=== PATIENT | female | born 1980 | race Caucasian/White ===

== ENCOUNTER 2025-07-02 13:40 | Outpatient (REF) | payer OTHER, SELFPAY ==
[2025-07-02 18:00] LABS: MANUAL DIFF FLAG NO
[2025-07-02 18:14] LABS: Hematocrit 40.9 % (37.0-47.0); Hemoglobin 13.5 g/dl (12.0-16.0); Imm Gran Abs Auto 0.01 X10*3/uL (0.00-0.03); Imm Gran Pct Auto 0.1 % (0.0-0.4); Lymphocytes Absolute Auto 2.1 X10*3/uL (1.2-4.9); Mean Corpuscular HGB Conc 33.0 g/dl (31.0-35.0); Mean Corpuscular Hemoglobin 29.2 pg (27.0-33.0); Mean Corpuscular Volume 88.3 fL (80.0-98.0); NRBC Abs Auto 0.000 X10*3/uL (0.0-0.012); NRBC Pct Auto 0.0 /100WBC (0.0-0.2); Platelet Count 314 X10*3/uL (160-400); Red Blood Count 4.63 X10*6/uL (4.20-5.50); White Blood Count 7.0 X10*3/uL (4.8-10.8)
[2025-07-02 18:34] LABS: Alanine Aminotransferase 18 U/L (0-31); Albumin Level 4.9 g/dL (3.5-5.0); Alkaline Phosphatase 70 U/L (39-117); Anion Gap 12 (12-20); Aspartate Amino Transferase 16 U/L (5-31); Blood Urea Nitrogen 11 mg/dL (9-16); Calcium 8.9 mg/dL (8.4-10.2); Carbon Dioxide 28 mmol/L (22-29); Chloride 100 mmol/L (96-108); Cholesterol 195 mg/dL (<200); Estimated Glomerular Filt Rate > 60; HDL Cholesterol 60 mg/dL (>40); Magnesium 2.2 mg/dL (1.6-2.6); Potassium 3.4 mmol/L (3.3-5.1); Sodium 137 mmol/L (135-145); Total Protein 8.0 g/dL (6.5-8.0); Triglycerides 77 mg/dL (<150)
[2025-07-02 18:58] LABS: Folate 13.6 ng/mL (> or = 4.0); Vitamin B12 986 pg/mL (200-900)
[2025-07-03 07:36] LABS: HBS Num1 89.59 mIU/mL (0-7.99); HBsAGNum1 0.35 S/CO (0.00-0.99); HIV Num 1 0.07 S/CO (0.00-0.99); Hepatitis B Surface Antigen Negative (Negative); ~HepC Num1 0.10 S/CO (0.00-0.79); ~Hepatitis B Surface Antibody REACTIVE (Nonreactive); ~Hepatitis C Antibody Nonreactive (Nonreactive)
[2025-07-03 08:13] LABS: Rubeola IgG (Measles) 35.00 AU/mL
[2025-07-06 12:18] LABS: VITAMIN D (1,25 OH) D3 82 pg/mL; Vit D (1,25-Dihydroxy) Total 82 pg/mL (18-72); Vitamin D (1,25 OH) D2 <8 pg/mL
== END 2025-07-02 13:41 | disposition home or self-care (01) ==
LOC: HO.HKASLDS 13:40
PROVIDERS: PCP Student in an Organized Health Care Education/Training Program; Visit Provider Student in an Organized Health Care Education/Training Program
DX: Z13.9 Encounter for screening, unspecified (principal); E89.40 Asymptomatic postprocedural ovarian failure; F41.9 Anxiety disorder, unspecified; F32.A Depression, unspecified; N60.02 Solitary cyst of left breast; Z86.03 Personal history of neoplasm of uncertain behavior; Z79.890 Hormone replacement therapy; Z79.899 Other long term (current) drug therapy
CPT/HCPCS: 36415; 80053; 80061; 82607; 82652; 82746; 83036; 83735; 84443; 85025; 86706; 86735; 86762; 86765; 86787; 86803; 87340; 87389

== ENCOUNTER 2025-07-02 13:40 | Outpatient (AMB) | payer OTHER, SELFPAY ==
--- NOTE | 2025-07-02 13:38 | A.OFFPC_ITS ---
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 Anxiety and Depression: The patient reports a history of depression and anxiety, which began after her surgery at age 31. These conditions are managed with fluoxetine (Prozac), which was previously prescribed by an online nurse practitioner. She is currently ru nning low on her medication, which prompted the visit. 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 She has been on hormone replacement therapy since the surgery, currently taking estradiol via 0.1 mg and 0.05 mg patches applied twice weekly, as well as progesterone. Associated symptoms include insomnia with interrupted sleep which started after the surgery. Migraine Headache: The patient reports a recurrence of migraine headaches, which she previously experienced in her 20s. She describes them as unilateral, without aura, and triggered by stress. She has tried sumatriptan, rizatriptan, and Ubrelvy for abortive therapy, noting that Ubrelvy works within two hours. In the past, she used propranolol 10 mg twice daily for prophylaxis. She was referred to a headache center previously but did not attend the appointment as her symptoms had resolved at that time. History of Breast Cyst: The patient has a history of a left breast cyst, for which a biopsy was performed at age 38. A titanium chip was placed, and the biopsy results indicated the lesion was benign. Due to having highly dense breasts, her previous MICA PATCHER recommended screening with ultrasounds instead of mammograms. She acknowledges that she is overdue for her screening ultrasound. Surgical History: - Bilateral oophorectomy at age 31 for a borderline ovarian tumor. - Omentectomy at age 31. - Left breast cyst biopsy at age 38 with placement of a titanium chip. Medications: - Fluoxetine (Prozac) for depression and anxiety. - Estradiol 0.1 mg and 0.05 mg patch twi ce weekly for hormone replacement therapy. - Progesterone for hormone replacement t herapy. - Ubrelvy as needed for migraine headach es. 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 - Housing: She recently moved from [facility]. - Family status: She has daughters. - Substance Use: Denies smoking or alcoh ol use. Family History: - No family history was discussed. Diagnostic Results: - Labs: Last blood work was performed ; no results were reviewed. - Diagnostics: Biopsy of a left breast c yst at age 38 was reported as benign. Past Medical History - ovarian tumor at age 31, status post b ilateral oophorectomy and omentectomy. - Surgical menopause since age 31. - Depression and anxiety, onset post-carrol hector. - Insomnia. - Migraine headaches. - History of benign left breast cyst, st atus post biopsy at age 38. - History of highly dense breasts. Health Maintenance - Order comprehensive baseline laborator y studies, including a complete blood count, comprehensive metabolic panel, thyroid studies, calcium, magnesium, vitamin B12, folate, vitamin D, hemoglobin A1c, lipid panel, and HIV screening. - Order Hepatitis B and MMR titers for e mployment requirements. - Order a bilateral breast ultrasound fo r breast cancer screening. - Request medical records from previous providers. - Plan for follow-up in two weeks to rev iew lab results. [facility] Medical History (Updated 07/02/25 @ 14:13 by Preston Dee MD) Cyst of left breast History of neoplasm of uncertain behavior of ovary Surgical menopause Anxiety and depression Family History (Updated 07/02/25 @ 13:49 by Dank Anderson MA) Mother High blood pressure Angina of effort Parkinson disease Diabetes Asthma Hypothyroidism Father No problems noted. Social History Housing: Apartment Patient Tobacco Use Status: Never used Tobacco service: No Current occupational status: employed Cognitive needs: No Hearing needs: No Vision needs: Yes (rx glasses) Review of Systems Narrative Review of Systems - Constitutional: Denies pain. - Psychiatric: Reports history of depression and anxiety. - Neurological: Reports recurrent, unilateral migraine headaches without aura. - Sleep: Reports interrupted sleep since undergoing surgical menopause. - Endocrine: Denies issues with blood pressure or blood sugar. - Gastrointestinal: Reports no issues with bowel movements and denies constipation. 10-point ROS reviewed and negative except as noted in HPI Physical exam (Primary Care) Vital Signs: Last Vital Signs Temp 97.7 F 07/02/25 13:45 Pulse 77 07/02/25 13:45 Resp 16 07/02/25 13:45 BP 107/66 07/02/25 13:45 Pulse Ox 97 07/02/25 13:45 Oxygen Delivery Method Room Air 07/02/25 13:45 BMI result Body Mass Index 23.9 Tobacco/Smoking Status: Tobacco use Status Tobacco use date assessed 07/02/25 07/02/25 13:44 Patient Tobacco Use Status Never used Tobacco 07/02/25 13:44 Narrative Physical Exam General: Well-appearing, in no acute distress. Vital signs: Within normal limits. HEENT: Normocephalic, atraumatic. PERRLA, EOMI. Conjunctiva clear, sclera anicteric. Oropharynx clear, mucous membranes moist. TMs intact bilaterally. Neck: Supple, no lymphadenopathy, no thyromegaly, no JVD or carotid bruits. Cardiovascular: RRR, normal S1/S2, no murmurs, rubs, or gallops. Peripheral pulses 2+ and symmetric. No edema. Respiratory: Lungs clear to auscultation bilaterally, no wheezes, rales, or rhonchi. Normal effort. Abdomen: Soft, non-tender, non-distended. Normoactive bowel sounds. No hepatosplenomegaly, no masses. MSK: Full range of motion, no joint swelling or deformity. Normal gait. Skin: Warm, dry, intact. No rashes, lesions, or pallor. Neuro: Alert and oriented x3. Cranial nerves II-XII intact. Strength 5/5 throughout. Sensation intact. Reflexes 2+ symmetric. Normal coordination and gait. Psych: Appropriate mood and affect. Normal judgment and insight. Patient reports depression and anxiety, managed with fluoxetine. Reports insomnia post-surgery. Coding Level of Care Code New Pt Level 4 (20108) Diagnoses History of neoplasm of uncertain behavior of ovary Z86.03 Surgical menopause E89.40 Anxiety and depression F41.9; F32.A Cyst of left breast N60.02 Assessment & Plan Assessment & Plan (1) History of neoplasm of uncertain behavior of ovary: Code(s): Z86.03 - Personal history of neoplasm of uncertain behavior Category: Medical (2) Surgical menopause: Code(s): E89.40 - Asymptomatic postprocedural ovarian failure Category: Medical (3) Anxiety and depression: Code(s): F41.9 - Anxiety disorder, unspecified; F32.A - Depression, unspecified Category: Medical (4) Cyst of left breast: Code(s): N60.02 - Solitary cyst of left breast Category: Medical Plan Consent The patient provided verbal consent for the proposed plan of care, which inc ludes medication refills, referrals to specialists, comprehensive laboratory testing, and diagnostic imaging. The rationale for obtaining baseline labs as a new patient was explained and the patient agreed. Patient was informed and verbally consented to the use of an ambient scribe for clinic note documentation during this visit. Plan 1. Anxiety And Depression - Refill fluoxetine (Prozac). - Place referral to Behavioral Health for ongoing management. 2. Surgical Menopause - Refill estradiol 0.1 mg and 0.05 mg patches and progesterone. - Place referral to FILTER TIP CATCHER for continued specialty care. 3. Migraine Headache - Prescribe propranolol 10 mg twice daily for migraine prophylaxis, as this was effective for the patient in the past. Discussion Notes I have reviewed the patient's request for medication refills and the need to establish care. I explained that as a new patient without any prior records, it is important to obtain comprehensive baseline laboratory studies to get an overall picture of her health, to which she agreed. I will provide refills for her current medications, including fluoxetine, estradiol, and progesterone. I will also prescribe propranolol for her recurrent migraine headaches, which she has used successfully in the past. I am placing referrals to behavioral health for management of her depression and anxiety and to an FILTER TIP CATCHER for ongoing management of her hormone replacement therapy. We discussed her overdue breast cancer screening, and I will order a bilateral breast ultrasound, which is appropriate given her dense breast tissue and her previous MICA PATCHER's recommendation. I have instructed the patient to have her labs drawn today as she is fasting and to follow up in two weeks to review the results. Finally, I advised her to sign a release form at the front office director to facilitate the request for her medical records from her previous providers. Patient Instructions - Your prescriptions for fluoxetine (Prozac), estradiol, progesterone, and propranolol will be sent to your pharmacy. - Please go to our clinic's lab to have your blood drawn today, as you are already fasting. - Our office will refer you to a behavioral health specialist and an FILTER TIP CATCHER. - If you do not hear from the specialists' offices within two weeks, please give them a call. - We have ordered a breast ultrasound for you. Please proceed with scheduling this imaging test. - Please sign a release form with the front office director so we can get your medical records from your previous doctors. - Please schedule a follow-up appointment in two weeks to go over your lab results. Medical Decision Making The patient is a 44-year-old female presenting to [facility] care after a recent relocation. Her primary needs are continuity of care for her chronic conditions and establishing a baseline health status, as no prior medical records are available. The patient's history of depression, anxiety, and surgical menopause requires ongoing medication management. Refills for fluoxetine and hormone replacement therapy (estradiol, progesterone) are clinically indicated to prevent symptom relapse. Given the specialized nature of these conditions, referrals to Behavioral Health and FILTER TIP CATCHER are appropriate for long-term, expert management. The patient's report of recurrent migraine headaches warrants prophylactic treatment. Her previous positive response to propranolol supports re-initiating this therapy at a standard low dose for prophylaxis. As this is an initial encounter without historical data, a comprehensive laboratory workup is prudent to establish baseline organ function, screen for metabolic abnormalities, and check relevant vitamin levels and titers. Ordering Hepatitis B and MMR titers will also satisfy her pre-employment health screening requirements. Given her history of a benign breast cyst, dense breast tissue, and her former MICA PATCHER's advice, a screening bilateral breast ultrasound is the most appropriate imaging modality, superseding a routine mammogram at this time. A follow-up in two weeks will allow for review of all diagnostic results and adjustment of the care plan. Total time spent caring for the patient today was 30 minutes. This includes time spent before the visit reviewing the chart, time spent documenting, and time spent reviewing laboratory results, diagnostic imaging, medications, performing a medically necessary evaluation, counseling on diagnoses, care coordination, ordering appropriate tests, ordering appropriate medications, review of tests performed by other providers, reporting test results with the patient. Orders: Orders Comprehensive Met. Panel Today Z13.9 - Encounter for screening, unspecified Hemoglobin A1c Today Z13.9 - Encounter for screening, unspecified HIV Ab/Ag Today Z13.9 - Encounter for screening, unspecified Lipid Panel Today Z13.9 - Encounter for screening, unspecified Magnesium Today Z13.9 - Encounter for screening, unspecified TSH reflex Free T4 Today Z13.9 - Encounter for screening, unspecified UA CC w/rflx Micro + Cult Today Z13.9 - Encounter for screening, unspecified Vitamin D 1,25 dihydroxy Today Z13.9 - Encounter for screening, unspecified Varicella IgG Antibody Today Z13.9 - Encounter for screening, unspecified US breast LT complete Today N60.02 - Solitary cyst of left breast US breast RT complete Today N60.02 - Solitary cyst of left breast Complete Blood Count Auto Diff Today Z13.9 - Encounter for screening, unspecified Hepatitis B Surface Antibody Today Z13.9 - Encounter for screening, unspecified Hepatitis B Surface Antigen Today Z13.9 - Encounter for screening, unspecified Hepatitis C Antibody Today Z13.9 - Encounter for screening, unspecified Vitamin B12 and Folate Today Z13.9 - Encounter for screening, unspecified MMR IgG Measles Mumps Rubella Today Z13.9 - Encounter for screening, unspecified Referrals Behavioral Health Referral F32.A - Depression, unspecified, F41.9 - Anxiety disorder, unspecified FILTER TIP CATCHER Referral E89.40 - Asymptomatic postprocedural ovarian failure, Z86.03 - Personal history of neoplasm of uncertain behavior
[2025-07-02 13:45] VITALS: BP 107/66; PULSE 77; RESP 16; TEMP 36.5; O2SAT 97; BMI 23.9
--- OUTSIDE RECORDS SUMMARY | 2025-07-02 14:36 | XMS_ITS | Encounter Summary ---
Author Organization [facility] Address [address] [place] [address] Care Team Providers Care Circuits Engineer Name Role Phone Stevenson Nicole MD Primary Care Provider Unava ilnakia Pcp, No Primary Care Provider Jimbo Kasper MD Primary Care Provider [phone] Encounter Details Date Type Department Care Team (Late st Contact Info) Description 06/03/2018 Scanned Document [address] [place] [address] [phone] Provider, Generic Social History Tobacco Use Types Packs/Day Years Used Date Smoking Tobacco: Never Alcohol Use Standard Drinks/Week Comments No 0 (1 standard drink = 0.6 oz pur e alcohol) Comments Unknown Sex and Gender Information Value Date Recorded Sex Assigned at Not on file Legal Sex Female 9:26 AM EDT Gender Identity Not on file Sexual Orientation Not on file documented as of this encounter Plan of Treatment Upcoming Encounters Date Type Department Care Team (Late st Contact Info) Description 10/01/2025 11:00 AM EST Office Visit [address] [place] [phone] Jimbo Diehl MD [address] [place] [phone] documented as of this encounter Visit Diagnoses Not on filedocumented in this encounter Care Teams Circuits Engineer Relationship Specialty Start Date End Date Stevenson Nicole MD PCP - General Internal Medicine 11/14/17 04/30/21 Pcp, No PCP - General General Medicine 05/01/21 09/29/24 Jimbo Diehl MD [address] [address] PCP - General Family Medicine 09/30/24 documented as of this encounter
--- OUTSIDE RECORDS SUMMARY | 2025-07-02 14:36 | XMS_ITS | Encounter Summary ---
Author Organization [facility] Address [address] [place] [address] Care Team Providers Care Mechanical Intern Name Role Phone Stevenson Nicole MD Primary Care Provider Unava ilnakia Pcp, No Primary Care Provider Jimbo Kasper MD Primary Care Provider [phone] Encounter Details Date Type Department Care Team (Late st Contact Info) Description 06/03/2018 Scanned Document [address] [place] [address] [phone] Provider, Generic Social History Tobacco Use Types [...] Description 10/01/2025 11:00 AM EST Office Visit [address] [place] [phone] Jimbo Diehl MD [address] [place] [address] documented as of this encounter Visit Diagnoses Not on filedocumented in this encounter Care Teams Mechanical Intern Relationship Specialty Start Date End Date Stevenson Nicole MD PCP - General Internal Medicine 11/14/17 04/30/21 Pcp, No PCP - General General Medicine 05/01/21 09/29/24 Jimbo Diehl MD [address] [address] PCP - General Family Medicine 09/30/24 documented as of this encounter
--- OUTSIDE RECORDS SUMMARY | 2025-07-02 14:36 | XMS_ITS | Encounter Summary ---
Author Organization [facility] Address [address] [place] [address] Care Team Providers Care Retail Assistant Manager Name Role Phone Stevenson Nicole MD Primary Care Provider Unava ilable Pcp, No Primary Care Provider UnavailJimbo Burns MD Primary Care Provider [phone] Encounter Details Date Type Department Care Team (Late st Contact Info) Description 08/19/2018 Scanned Document [address] [place] [phone] Stevenson Nicole MD Social History Tobacco Use Types Packs/Day Years [...] Description 10/01/2025 11:00 AM EST Office Visit [address] [place] [phone] Jimbo Diehl MD [address] [place] [phone] documented as of this encounter Visit Diagnoses Not on filedocumented in this encounter Care Teams Retail Assistant Manager Relationship Specialty Start Date End Date Stevenson Nicole MD PCP - General Internal Medicine 11/14/17 04/30/21 Pcp, No PCP - General General Medicine 05/01/21 09/29/24 Jimbo Diehl MD [address] [address] PCP - General Family Medicine 09/30/24 documented as of this encounter
--- OUTSIDE RECORDS SUMMARY | 2025-07-02 14:36 | XMS_ITS | Encounter Summary ---
Author Organization [facility] Address [address] [place] [address] Care Team Providers Care Software Sales Manager Name Role Phone Stevenson Nicole MD Primary Care Provider Unava ilnakia Pcp, No Primary Care Provider Jimbo Kasper MD Primary Care Provider [phone] Encounter Details Date Type Department Care Team (Late st Contact Info) Description 05/20/2018 Scanned Document [address] [phone] Provider, Generic Social History Tobacco Use Types [...] Description 10/01/2025 11:00 AM EST Office Visit [address] [place] [phone] Jimbo Diehl MD [address] [place] [address] documented as of this encounter Visit Diagnoses Not on filedocumented in this encounter Care Teams Software Sales Manager Relationship Specialty Start Date End Date Stevenson Nicole MD PCP - General Internal Medicine 11/14/17 04/30/21 Pcp, No PCP - General General Medicine 05/01/21 09/29/24 Jimbo Diehl MD [address] [address] PCP - General Family Medicine 09/30/24 documented as of this encounter
--- OUTSIDE RECORDS SUMMARY | 2025-07-02 14:36 | XMS_ITS | Encounter Summary ---
Author Organization [facility] Address [address] [place] [address] Care Team Providers Care Goat Farmer Name Role Phone Stevenson Nicole MD Primary Care Provider Unava ilnakia Pcp, No Primary Care Provider Jimbo Kasper MD Primary Care Provider [phone] Encounter Details Date Type Department Care Team (Late st Contact Info) Description 07/15/2018 Scanned Document [address] [place] [address] [phone] Provider, Generic Social History Tobacco Use Types [...] Description 10/01/2025 11:00 AM EST Office Visit [address] [place] [phone] Jimbo Diehl MD [address] [place] [phone] documented as of this encounter Visit Diagnoses Not on filedocumented in this encounter Care Teams Goat Farmer Relationship Specialty Start Date End Date Stevenson Nicole MD PCP - General Internal Medicine 11/14/17 04/30/21 Pcp, No PCP - General General Medicine 05/01/21 09/29/24 Jimbo Diehl MD [address] [address] PCP - General Family Medicine 09/30/24 documented as of this encounter
--- OUTSIDE RECORDS SUMMARY | 2025-07-02 14:36 | XMS_ITS | Encounter Summary ---
Author Organization [facility] Address [address] [place] [address] Care Team Providers Care Stock Checkerer Name Role Phone Stevenson Nicole MD Primary Care Provider Unava ilnakia Pcp, No Primary Care Provider Jimbo Kasper MD Primary Care Provider [phone] Encounter Details Date Type Department Care Team (Late st Contact Info) Description 04/18/2018 Scanned Document [address] [phone] Provider, Generic Social History Tobacco [...] Description 10/01/2025 11:00 AM EST Office Visit [address] [place] [phone] Jimbo Diehl MD [address] [place] [address] documented as of this encounter Visit Diagnoses Not on filedocumented in this encounter Care Teams Stock Checkerer Relationship Specialty Start Date End Date Stevenson Nicole MD PCP - General Internal Medicine 11/14/17 04/30/21 Pcp, No PCP - General General Medicine 05/01/21 09/29/24 Jimbo Diehl MD [address] [address] PCP - General Family Medicine 09/30/24 documented as of this encounter
--- OUTSIDE RECORDS SUMMARY | 2025-07-02 14:36 | XMS_ITS | Encounter Summary ---
Author Organization [facility] Address [address] [place] [address] Care Team Providers Care Interpreter For The Deaf Name Role Phone Stevenson Nicole MD Primary Care Provider Unava ilnakia Pcp, No Primary Care Provider Jimbo Kasper MD Primary Care Provider [phone] Encounter Details Date Type Department Care Team (Late st Contact Info) Description 11/18/2017 Scanned Document [address] [facility] [address] [place] [phone] Provider, Generic Social History Tobacco Use Types Packs/Day Years Used Date Smoking Tobacco: Never Assessed Comments Unknown Sex and Gender Information Value Date Recorded Sex Assigned at Not on file Legal Sex Female 9:26 AM EDT Gender Identity Not on file Sexual Orientation Not on file documented as of this encounter Plan of Treatment Upcoming Encounters Date Type Department Care Team (Late st Contact Info) Description 10/01/2025 11:00 AM EST Office Visit [address] [place] [phone] Jimbo Diehl MD [address] [place] [phone] documented as of this encounter Visit Diagnoses Not on filedocumented in this encounter Care Teams Interpreter For The Deaf Relationship Specialty Start Date End Date Stevenson Nicole MD PCP - General Internal Medicine 11/14/17 04/30/21 Pcp, No PCP - General General Medicine 05/01/21 09/29/24 Jimbo Diehl MD [address] [facility] [address] [place] [address] PCP - General Family Medicine 09/30/24 documented as of this encounter
--- OUTSIDE RECORDS SUMMARY | 2025-07-02 14:36 | XMS_ITS | Encounter Summary ---
Author Organization Formerly [facility] Address [address] [place] [address] Care Team Providers Care Papeterie Table Assembler Name Role Phone Stevenson Nicole MD Primary Care Provider Unava ilnakia Pcp, No Primary Care Provider Jimbo Kasper MD Primary Care Provider [phone] Encounter Details Date Type Department Care Team (Late st Contact Info) Description 07/09/2019 Scanned Document [address] [facility] [address] [place] [phone] Provider, Generic Social History Tobacco Use Types Packs/Day Years Used Date Smoking Tobacco: Never Smokeless Tobacco: Never Alcohol Use Standard Drinks/Week Comments No 0 (1 standard drink = 0.6 oz pur e alcohol) Comments Yes Sex and Gender Information Value Date Recorded Sex Assigned at Not on file Legal Sex Female 9:26 AM EDT Gender Identity Not on file Sexual Orientation Not on file documented as of this encounter Plan of Treatment Upcoming Encounters Date Type Department Care Team (Late st Contact Info) Description 10/01/2025 11:00 AM EST Office Visit [address] [place] [phone] Jimbo Diehl MD [address] [place] [address] documented as of this encounter Visit Diagnoses Not on filedocumented in this encounter Care Teams Papeterie Table Assembler Relationship Specialty Start Date End Date Stevenson Nicole MD PCP - General Internal Medicine 11/14/17 04/30/21 Pcp, No PCP - General General Medicine 05/01/21 09/29/24 Jimbo Diehl MD [address] [address] PCP - General Family Medicine 09/30/24 documented as of this encounter
--- OUTSIDE RECORDS SUMMARY | 2025-07-02 14:36 | XMS_ITS | Encounter Summary ---
Author Organization [facility] Address [address] [place] [address] Care Team Providers Care Material Assistant Name Role Phone Pcp, No Primary Care Provider Jimbo Kasper MD Primary Care Provider [phone] Encounter Details Date Type Department Care Team (Late st Contact Info) Description 02/04/2023 Telephone [facility] [address] [place] [address] Pcp, No Social History Tobacco Use Types Packs/Day Years Used Date Smoking Tobacco: Never Smokeless Tobacco: Never Alcohol Use Standard Drinks/Week Comments No 0 (1 standard drink = 0.6 oz pur e alcohol) Comments No Sex and Gender Information Value Date Recorded Sex Assigned at Not on file Legal Sex Female 9:26 AM EDT Gender Identity Not on file Sexual Orientation Not on file documented as of this encounter Miscellaneous Notes * Telephone Encounter - Ronnie Shelton - 02/04/2023 2:09 PM EDT Spoke to pt all set * Telephone Encounter - Hermelinda Mane LPN - 02/04/2023 1:41 PM EDT Patient can discuss at establish care visit. documented in this encounter Plan of Treatment Upcoming Encounters Date Type Department Care Team (Late st Contact Info) Description 10/01/2025 11:00 AM EST Office Visit [address] [place] [address] Jimbo Diehl MD [address] [place] [address] [address] [place] [address] documented as of this encounter Visit Diagnoses Not on filedocumented in this encounter Care Teams Material Assistant Relationship Specialty Start Date End Date Pcp, No PCP - General General Medicine 05/01/21 09/29/24 Jimbo Diehl MD [address] [place] [address] 1 [place] [address] PCP - General Family Medicine 09/30/24 documented as of this encounter
--- OUTSIDE RECORDS SUMMARY | 2025-07-02 14:36 | XMS_ITS | Encounter Summary ---
Author Organization Formerly [facility] Address [address] [place] [address] Care Team Providers Care Enrollment Eligibility Representative Name Role Phone Stevenson Nicole MD Primary Care Provider Unava ilnakia Pcp, No Primary Care Provider Jimbo Kasper MD Primary Care Provider [phone] Encounter Details Date Type Department Care Team (Late st Contact Info) Description 03/14/2018 Scanned Document [address] [phone] Provider, Generic Social History Tobacco [...] Description 10/01/2025 11:00 AM EST Office Visit [address] [place] [phone] Jimbo Diehl MD [address] [place] [address] documented as of this encounter Visit Diagnoses Not on filedocumented in this encounter Care Teams Enrollment Eligibility Representative Relationship Specialty Start Date End Date Stevenson Nicole MD PCP - General Internal Medicine 11/14/17 04/30/21 Pcp, No PCP - General General Medicine 05/01/21 09/29/24 Jimbo Diehl MD [address] [address] PCP - General Family Medicine 09/30/24 documented as of this encounter
--- OUTSIDE RECORDS SUMMARY | 2025-07-02 14:36 | XMS_ITS | Encounter Summary ---
Author Organization [facility] Address [address] [place] [address] Care Team Providers Care Truck Terminal Manager Name Role Phone Stevenson Nicole MD Primary Care Provider Unava ilnakia Pcp, No Primary Care Provider Jimbo Kasper MD Primary Care Provider [phone] Encounter Details Date Type Department Care Team (Late st Contact Info) Description 04/19/2018 Scanned Document [address] [address] Provider, Generic Social History Tobacco [...] Description 10/01/2025 11:00 AM EST Office Visit [address] [place] [phone] Jimbo Diehl MD [address] [place] [address] documented as of this encounter Visit Diagnoses Not on filedocumented in this encounter Care Teams Truck Terminal Manager Relationship Specialty Start Date End Date Stevenson Nicole MD PCP - General Internal Medicine 11/14/17 04/30/21 Pcp, No PCP - General General Medicine 05/01/21 09/29/24 Jimbo Diehl MD [address] [address] PCP - General Family Medicine 09/30/24 documented as of this encounter
--- OUTSIDE RECORDS SUMMARY | 2025-07-02 14:36 | XMS_ITS | Clinical Summary ---
Author Organization [facility] Address [address] [place] [address] Care Team Providers Care Mortgage Underwriter Name Role Phone Unavailable Primary Care Provider Unavailabl e Allergies Active Allergy Reactions Criticality Noted Date Comments Morphine Nausea And Vomiting Low 12/10/2019 Nausea and vomiting Nausea and vomiting Medications acetaminophen (TYLENOL) 325 mg tablet Take 650 mg by mouth every 6 hours as needed. Active cetirizine (ZyrTEC) 5 mg tablet Take 5 mg by mouth as needed. Active Premphase 0.625 mg (14)/ 0.625mg-5mg(14) tablet See admin instructions. 10/13/2021 Active ibuprofen 600 mg tablet Take 600 mg by mouth as needed. 12/13/2019 Active SUMAtriptan (IMITREX) 100 mg tablet TAKE 1 TABLET BY MOUTH ONCE NEEDED FOR MIGRAINE *MAY REPEAT 1 TAB IN 2 HOURS IF NEEDED 04/20/2018 Active venlafaxine (EFFEXOR) 75 mg tablet Take 75 mg by mouth daily. Active lisdexamfetamin e (VYVANSE) 20 mg capsule Take 20 mg by mouth 2 (two) times a day. Active cyclobenzaprine (FLEXERIL) 10 mg tablet Take 1 tablet (10 mg total) by mouth nightly as needed for muscle spasms. 30 tablet 11/14/2021 Active Active Problems Problem Noted Date Diagnosed Date Encounter to establish care 11/14/2021 Assessment & Plan (11/14/2021 2:45 PM EDT): Social Hx: - ETOH: Denies alcohol use. - Tobacco use: Denies tobacco use including cigarettes/cigars, e-cigs/vaping, and chewing tobacco. - Illicit drugs: Denies illicit drug use. - Contraception method:s/p oopherectomy - Diet: Indicates that diet includes adequate portions of lean meats, vegetables, and grains. Denies eating junk foods including chips, candy, soda, and fast food. - Exercise: none - Weight trend: Recently gained 10 pounds Immunizations: Immunization History Administered Date(s) Administered COVID-19 mRNA (PFIZER) 02/22/2021, 03/29/2021 Tdap 10/15/2019 Preventative Screening: - Mammogram: Last mammogram completed in 2019 , multiple cysts , with benign biopsy , pt instructed to follow up in 6 months with repeat US/mammogram but did not have that done. Follow up US/mammogram ordered - PAP smear: Last PAP smear 2 years ago. -ve - Diabetes: will order an HbA1c and lipid profile. - HTN: Blood pressure of 110/75 today. - Osteoporosis: pt s/p oopherectomy on HRT, high risk for osteoporosis, plan to be further discussed with OBGYN for ideal age of screening. - DAVID: Denies being continually worried or anxious about a number of events/activites in life over the last several months. 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 She was followed for 5 years without sign of recurrence. She was on control pills for hormonal replacement up until she started IVF. 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 Immunizations Immunization Administration Dates Next Due Tdap 10/15/2019 Family History Medical History Relation Comments No Known Problems Father Heart attack Maternal Grandfather Other Maternal Grandfather peptic ulce r No Known Problems Maternal Grandmother Coronary artery disease Mother Hypertension Mother Other Mother acid reflux Colon cancer Paternal Grandfather Cirrhosis Paternal Grandmother Relation Status Comments Father Maternal Grandfather Maternal Grandmother Mother Paternal Grandfather Paternal Grandmother Social History Tobacco Use Types Packs/Day Years Used Date Smoking Tobacco: Never Smokeless Tobacco: Never Alcohol Use Standard Drinks/Week Comments Not Currently 0 (1 standard drink = 0.6 oz pur e alcohol) Comments No Sex and Gender Information Value Date Recorded Sex Assigned at Female 07/07/2021 5:14 AM EDT Legal Sex Female 12:37 PM EDT Gender Identity Female 07/07/2021 5:14 AM EDT Sexual Orientation Straight 07/07/2021 5: 14 AM EDT Last Filed Vital Signs Vital Sign Reading Time Taken Comments Blood Pressure 110/75 11/14/2021 1:40 PM EDT Pulse 89 11/14/2021 1:40 PM EDT Temperature 36.2 C (97.1 F) 11/14/2021 1:40 PM EDT Respiratory Rate - - Oxygen Saturation 95% 11/14/2021 1:40 PM EDT Inhaled Oxygen Concentration - - Weight 61.9 kg (136 lb 6.4 oz) 11/14/2021 1:40 P M EDT Height 157.5 cm (5' 2 ) 11/14/2021 1:40 PM EDT Body Mass Index 24.95 11/14/2021 1:40 PM EDT Plan of Treatment Health Maintenance Due Date Last Done Comments Hepatitis B Vaccines (1 of 3 - 19+ 3-dose series) 2001 Pap Smear 2003 HPV Vaccines (1 - 3-dose SCD M series) 2009 Cervical Cancer Screening 2012 HPV/Cotest 2012 Breast Cancer Screening 11/20/2020 11/20/2018 COVID-19 Vaccine (3 - 2024-2 6 season) 2025 03/29/2021, 02/22/2021 Influenza Vaccine (#1) 2025 DTaP,Tdap,and Td Vaccines (2 - Td or Tdap) 10/15/2029 10/15/2019 Zoster Vaccines (1 of 2) 2032 HIV Screening Completed 10/01/2019 Hepatitis A Vaccines Aged Out No long er eligible based on patient's age to complete this topic MMR Vaccines Aged Out No longer eligi ble based on patient's age to complete this topic Meningococcal Vaccine Aged Out No franca perez eligible based on patient's age to complete this topic Pneumococcal Vaccine: Pediatrics (0 to 5 Years) and At-Risk Patients (6 to 49 Years) Aged Out No longer eligible b ased on patient's age to complete this topic Insurance MEDICAID COVID 19 MEDICAID [id number]
--- OUTSIDE RECORDS SUMMARY | 2025-07-02 14:36 | XMS_ITS | Encounter Summary ---
Author Organization [facility] Address [address] [place] [address] Care Team Providers Care Strip Winder Name Role Phone Stevenson Nicole MD Primary Care Provider Unava ilable Pcp, No Primary Care Provider UnavailJimbo Burns MD Primary Care Provider [phone] Encounter Details Date Type Department Care Team (Late st Contact Info) Description 07/16/2018 Scanned Document [address] [place] [phone] Stevenson Nicole MD Social History Tobacco [...] Description 10/01/2025 11:00 AM EST Office Visit [address] [place] [phone] Jimbo Dihel MD [address] [place] [address] documented as of this encounter Visit Diagnoses Not on filedocumented in this encounter Care Teams Strip Winder Relationship Specialty Start Date End Date Stevenson Nicole MD PCP - General Internal Medicine 11/14/17 04/30/21 Pcp, No PCP - General General Medicine 05/01/21 09/29/24 Jimbo Diehl MD [address] [address] PCP - General Family Medicine 09/30/24 documented as of this encounter
--- OUTSIDE RECORDS SUMMARY | 2025-07-02 14:36 | XMS_ITS | Clinical Summary ---
Author Organization [facility] Address [address] [place] [address] Care Team Providers Care Parasitologist Name Role Phone Jimbo Diehl MD Primary Care Provider [phone] Allergies Active Allergy Reactions Criticality Noted Date Comments Morphine Nausea And Vomiting Low 12/10/2019 Nausea and vomiting Nausea and vomiting Nausea and vomiting Medications cetirizine (ZyrTEC) 5 MG tablet Take 1 tablet (5 mg total) by mouth daily. Active acetaminophen (TYLENOL) 325 MG tablet Take 2 tablets (650 mg total) by mouth 4 times daily (every 6 hours) as needed for mild pain. Active FLUoxetine (PROzac) 40 MG capsule Take 1 capsule (40 mg total) by mouth daily. Active estradiol (VIVELLE-DOT) 0.05 MG/24HR external patchIndication s:History of ovarian cancer PLACE 1 PATCH ON THE SKIN 2 TIMES A WEEK. 24 patch 2 10/26/2024 Active progesterone (PROMETRIUM) 100 MG capsuleIndicati ons:Encounter to establish care,History of ovarian cancer TAKE 1 CAPSULE BY MOUTH EVERY DAY 90 capsule 1 04/15/2025 Active Active Problems Problem Noted Date Diagnosed Date History of ovarian cancer 09/30/2024 Assessment & Plan (09/30/2024 12:08 PM EST): Orders: Amb referral to Obstetrics & Gynecology progesterone (PROMETRIUM) 100 MG capsule; Take 1 capsule (100 mg total) by mouth daily. estradiol (VIVELLE-DOT) 0.05 MG/24HR external patch; Place 1 patch on the skin 2 (two) times a week. Chronic nonintractable headache 09/30/2024 Assessment & Plan (09/30/2024 12:08 PM EST): Orders: Amb Referral to Neurology-Headache Sciatica of left side 03/22/2020 Abnormal finding on breast imaging 12/09/2018 Vitamin D deficiency 12/03/2018 Ovarian cancer 11/21/2017 Chronic paroxysmal hemicrania, not intractable 0 11/21/2017 Encounters Date Type Department Care Team Description 04/15/[address] [phone] Jimbo Diehl MD Encounter to establish care; History of ovarian cancer from Last 3 Months Immunizations Immunization Administration Dates Next Due Tdap 10/15/2019 Family History Medical History Relation Name Comments Cancer Maternal Grandfather either colon or esophageal, she reports that it was never determined which Heart attack Maternal Grandfather Angina Mother CHEPE disease Mother Hypertension Mother Panic disorder Mother Ovarian cysts Paternal Aunt 1 Ovarian cysts Paternal Aunt 2 Colon cancer Paternal Grandfather Alcohol abuse Paternal Grandmother Liver cancer Paternal Grandmother Hyperlipidemia Sister Ovarian cysts Sister Relation Name Status Comments Father Alive Maternal Aunt Alive Maternal Grandfather (Age 69) Maternal Grandmother (Age 95) Maternal Uncle 1 Alive Maternal Uncle 2 Alive Mother Alive Paternal Aunt 1 Alive Paternal Aunt 2 Alive Paternal Grandfather (Age 72) Paternal Grandmother (Age 70) Paternal Uncle 1 Alive Paternal Uncle 2 Alive Sister Alive Social History Tobacco Use Types Packs/Day Years Used Date Smoking Tobacco: Never Smokeless Tobacco: Never Tobacco Cessation:Counseling Given: Not Answered Alcohol Use Standard Drinks/Week Comments No 0 (1 standard drink = 0.6 oz pur e alcohol) [facility] Utilities Answer Date Recorded In the past 12 months has e electric, gas, oil, or water company threatened to shut off services in your home? No 09/30/2024 Social Connection and Isolation Panel Answer Date Recorded In a typical week, how many times do you talk on the phone with family, friends, or neighbors? Three times a week 09/30/2024 Frequency of Social Gatherin gs with Friends and Family Not on file 09/30/2024 Attends [employer] Services Not on file 09/30 Active Member of Clubs or Organizations Not on f ile 09/30/2024 Attends Club or Organization Meetings Not on zana e 09/30/2024 Marital Status Not on file 09/30/2024 AUDIT-C Answer Date Recorded Q1: How often do you have a drink containing alc ohol? Never 09/30/2024 Average Number of Drinks Not on file 025 Frequency of Binge Drinking Not on file 09/03 PHQ-2 Answer Date Recorded PHQ-2 Total Score 0 09/30/2024 Hunger Vital Sign Answer Date Recorded Within the past 12 months, y ou worried that your food would run out before you got the money to buy more. Patient declined Within the past 12 months, t he food you bought just didn't last and you didn't have money to get more. Patient declined PRAPARE - Transportation Answer Date Re corded In the past 12 months, has l ack of transportation kept you from medical appointments or from getting medications? Patient declined 09/30/2024 In the past 12 months, has l ack of transportation kept you from meetings, work, or from getting things needed for daily living? Patient declined 09/30/2024 Housing Stability Vital Sign Answer Thad e Recorded In the last 12 months, was t here a time when you were not able to pay the mortgage or rent on time? No 09/30/2024 In the past 12 months, how m any times have you moved where you were living? 0 09/30/2024 At any time in the past 12 m [facility], were you homeless or living in a skilled nursing (including now)? No 09/30/2024 Education Answer Date Recorded What is the highest level of school you have completed or the highest degree you have received? Master's degree (e.g., MA, MS, Matthias, MEd, MARINE ENGINEER [employer], MICHAELA) 09/30/2024 Comments No Sex and Gender Information Value Date Recorded Sex Assigned at Not on file Legal Sex Female 9:26 AM EDT Gender Identity Not on file Sexual Orientation Not on file Last Filed Vital Signs Vital Sign Reading Time Taken Comments Blood Pressure 114/66 11/16/2024 11:08 AM EDT Pulse 84 09/30/2024 11:46 AM EST Temperature 36.8 C (98.3 F) 09/30/2024 11:46 AM EST Respiratory Rate 18 09/30/2024 11:46 AM EST Oxygen Saturation 99% 09/30/2024 11:46 AM EST Inhaled Oxygen Concentration - - Weight 64.9 kg (143 lb) 11/16/2024 11:08 AM EDT Height 157.5 cm (5' 2 ) 09/30/2024 11:46 AM EST Pt reported Body Mass Index 26.16 09/30/2024 11:46 AM EST Plan of Treatment Upcoming Encounters Date Type Department Care Team (Late st Contact Info) Description 10/01/2025 11:00 AM EST Office Visit [address] [place] [phone] Jimbo Diehl MD [address] [place] [address] 1 [place] [address] Health Maintenance Due Date Last Done Comments Hepatitis C Virus Screening 1982 COVID-19 Vaccine (#1) 1987 Hepatitis B Vaccines (1 of 3 - 19+ 3-dose series) 2001 Pneumococcal Vaccine: Pediat ariella (0-5 Years) and At-Risk Patients (6 to 49 Years) (1 of 2 - PCV) 2001 Mammogram 2022 Influenza Vaccine 04/02/2025 05/24/2020 Physical 11/16/2026 11/16/2024, 09/30/2024 Pap Smear (Ages 21-65) 11/17/2027 , 11/28/2018 (Previously Completed) DTaP/Tdap/Td Vaccines (2 - T d or Tdap) 10/15/2029 10/15/2019 HIV Screening Completed 10/01/2019 HPV Vaccines (No Doses Required) Completed Procedures Procedure Name Priority Date/Time Associated Diagnosis Comments THINPREP PAP(FOREIGN POLICY OFFICER) HPV SCR RFX HPV 16,18/45 Routine 11/16/2024 1:43 PM EDT Encounter for gynecological examination without abnormal finding Papanicolaou smear for cervical cancer screening Screening for HPV (human papillomavirus) from Last 3 Months or Most Recently Relevant to Health Maintenance Results * ThinPrep Pap(Manager Equity) HPV Scr Rfx HPV 16,18/45 (11/16/2024 1:43 PM EDT) 11/16/2024 1:43 PM EDT Narrative [facility] - 12/01/2024 1:02 PM EDT To view the final report click the scan hyperlink below. us Gabriela Fu APRN LAB AMB PATH/CYTO MARYANNE LOCKETT Final Result Performing Organization Address City/State/[facility] de Phone Number [facility] [address] [place] [address], from Last 3 Months or Most Recently Relevant to Health Maintenance Insurance Care Teams Parasitologist Relationship Specialty Start Date End Date Jimbo Diehl MD [address] [place] [address] PCP - General Family Medicine 09/30/24
--- OUTSIDE RECORDS SUMMARY | 2025-07-02 14:36 | XMS_ITS | Encounter Summary ---
Author Organization [facility] Address [address] [place] [address] Care Team Providers Care Nurse Rn Bsn Name Role Phone Stevenson Nicole MD Primary Care Provider Unava ilnakia Pcp, No Primary Care Provider Jimbo Kasper MD Primary Care Provider [phone] Encounter Details Date Type Department Care Team (Late st Contact Info) Description 05/06/2018 Scanned Document [address] [place] [phone] Provider, Generic Social History Tobacco Use Types [...] Description 10/01/2025 11:00 AM EST Office Visit [address] [place] [phone] Jimbo Diehl MD [address] [place] [address] documented as of this encounter Visit Diagnoses Not on filedocumented in this encounter Care Teams Nurse Rn Bsn Relationship Specialty Start Date End Date Stevenson Nicole MD PCP - General Internal Medicine 11/14/17 04/30/21 Pcp, No PCP - General General Medicine 05/01/21 09/29/24 Jimbo Diehl MD [address] [address] PCP - General Family Medicine 09/30/24 documented as of this encounter
== END 2025-07-02 14:10 | disposition home or self-care (01) ==
LOC: HO.HMCFMS 13:40
PROVIDERS: PCP Student in an Organized Health Care Education/Training Program; Visit Provider Student in an Organized Health Care Education/Training Program
DX: Z86.03 Personal history of neoplasm of uncertain behavior (principal); E89.40 Asymptomatic postprocedural ovarian failure; F41.9 Anxiety disorder, unspecified; F32.A Depression, unspecified; N60.02 Solitary cyst of left breast

== ENCOUNTER 2025-07-19 10:47 | Outpatient (AMB) | payer OTHER, SELFPAY ==
--- NOTE | 2025-07-19 10:49 | MHC.PC.OV ---
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 Accompanied by: Self / Same As Patient Allergies No Known Allergies Allergy (Verified 07/19/25 10:51) Medication List - Last Reconciled 07/19/25 by Preston Dee MD estradiol (Vivelle-Dot) 1 patch transdermal 2XW estradiol (Vivelle-Dot) 1 patch transdermal 2XW fluoxetine 40 mg PO DAILY progesterone micronized 100 mg PO DAILY propranolol 10 mg PO ONCE Tobacco use date assessed: 07/02/25 Dental Screening Dental Screen Date: 07/02/25 HPI HPI Comments History of Present Illness Details History of Present Illness The patient is a 44-year-old female presenting for a follow-up to review lab results and general health maintenance. Hyperlipidemia: The patient's LDL cholesterol is slightly elevated, though she was fasting for the test. She reports recent consumption of more fatty foods, including a lot of cheese. Hypervitaminosis D: The patient's vitamin D level is elevated at 82, and she is currently taking supplements. Medications: - Vitamin D supplement use reported. Social History: - Employment: The patient will be starting a new job on the in [place]. - Diet: Reports eating more fatty foods, with a high intake of cheese. Diagnostic Results: - Lab results reviewed: - CBC: White blood cells, red blood cells, hemoglobin, hematocrit, MCV, and platelets were normal. - Chemistry Panel: Electrolytes, sodium, potassium, and renal function were good. - Glucose: Random glucose and hemoglobin A1c were great. - Metabolic: Calcium, magnesium, and liver functions were good. - Lipid Panel: Triglycerides and total cholesterol were good. - LDL Cholesterol: Slightly elevated. - HDL Cholesterol: High at 60. - Vitamins: Vitamin B12 was good; Vitamin D was 82. - Folate and Thyroid: Folate and thyroid function were good. - Infectious Disease Screen: Hepatitis B, Hepatitis C, and HIV were negative. - Titers: Mumps, Rubella, Rubeola, and Varicella titers were checked. Past Medical History Health Maintenance - All lab results were reviewed with the patient. - Prescriptions will be sent to [facility] for a 90-day supply as requested. - A follow-up appointment is recommended in six months. [facility] Medical History (Updated 07/19/25 @ 11:37 by Preston Dee MD) Hypervitaminosis D Hyperlipidemia Cyst of left breast History of neoplasm of uncertain behavior of ovary Surgical menopause Anxiety and depression Family History Mother High blood pressure Angina of effort Parkinson disease Diabetes Asthma Hypothyroidism Father No problems noted. Social History (Updated 07/19/25 @ 10:51 by Mk Linares CMA) Housing: Apartment Alcohol intake: never Patient Tobacco Use Status: Never used Tobacco Use of substances other than those prescribed or required for medical reasons: No service: No Current occupational status: employed Cognitive needs: No Hearing needs: No Vision needs: Yes (rx glasses) Questionnaire Thrive Questionnaire Date Thrive assessed: 07/02/25 I am a: Patient What is your living situation today?: I have a steady place to live Within the past 12 months, did the food you bought not last and you didn't have the money to get more?: Never true Within the past 12 months, did you worry whether your food would run out before you got money to buy more?: Never true Do you have trouble paying for medicines?: No Do you have trouble getting transportation to medical appointments?: No Do you have trouble paying your heating and electricity bill?: No Do you have trouble taking care of your child, family member or friend?: No Are you currently unemployed and looking for a job?: I choose not to answer this question Are you interested in more education?: No Please select the resources that you would like help with: None Currently or been in a relationship where the following occur: No concerns reported THRIVE Score: 0 Review of Systems Narrative Review of Systems - Constitutional: The patient denies any questions or concerns. 10-point ROS reviewed and negative except as noted in HPI Physical exam (Primary Care) Vital Signs: Last Vital Signs Temp 97.9 F 07/19/25 10:52 Pulse 83 07/19/25 10:52 Resp 16 07/19/25 10:52 BP 102/53 L 07/19/25 10:52 Pulse Ox 96 07/19/25 10:52 Oxygen Delivery Method Room Air 07/19/25 10:52 BMI result Body Mass Index 24.6 Tobacco/Smoking Status: Tobacco use Status Tobacco use date assessed 07/02/25 07/19/25 10:54 Patient Tobacco Use Status Never used Tobacco 07/19/25 10:54 Thrive Assessment: Date of Thrive Assessment Date Thrive assessed 07/02/25 07/19/25 10:54 Currently or been in a relationship where the following occur: No concerns reported Narrative Physical Exam General: Well-appearing, in no acute distress. Vital signs: Within normal limits. HEENT: Normocephalic, atraumatic. PERRLA, EOMI. Conjunctiva clear, sclera anicteric. Oropharynx clear, mucous membranes moist. TMs intact bilaterally. Neck: Supple, no lymphadenopathy, no thyromegaly, no JVD or carotid bruits. Cardiovascular: RRR, normal S1/S2, no murmurs, rubs, or gallops. Peripheral pulses 2+ and symmetric. No edema. Respiratory: Lungs clear to auscultation bilaterally, no wheezes, rales, or rhonchi. Normal effort. Abdomen: Soft, non-tender, non-distended. Normoactive bowel sounds. No hepatosplenomegaly, no masses. MSK: Full range of motion, no joint swelling or deformity. Normal gait. Skin: Warm, dry, intact. No rashes, lesions, or pallor. Neuro: Alert and oriented x3. Cranial nerves II-XII intact. Strength 5/5 throughout. Sensation intact. Reflexes 2+ symmetric. Normal coordination and gait. Psych: Appropriate mood and affect. Normal judgment and insight. Coding Level of Care Code Est Pt Level 3 (04264) Diagnoses Hyperlipidemia E78.5 Hypervitaminosis D E67.3 Surgical menopause E89.40 Anxiety and depression F41.9; F32.A Assessment & Plan Assessment & Plan (1) Hyperlipidemia: Code(s): E78.5 - Hyperlipidemia, unspecified Category: Medical (2) Hypervitaminosis D: Code(s): E67.3 - Hypervitaminosis D Category: Medical (3) Surgical menopause: Code(s): E89.40 - Asymptomatic postprocedural ovarian failure Category: Medical (4) Anxiety and depression: Code(s): F41.9 - Anxiety disorder, unspecified; F32.A - Depression, unspecified Category: Medical Plan Consent Patient was informed and verbally consented to the use of an ambient scribe for clinic note documentation during this visit. Plan 1. Hyperlipidemia - The patient's elevated LDL is noted, though her protective HDL is high at 60. - Advised to reduce consumption of fatty foods, especially cheese. 2. Hypervitaminosis D - With a vitamin D level of 82, the patient was advised to reduce her supplementation. Discussion Notes I reviewed the patient's recent lab work, which was mostly normal. We discussed her slightly elevated LDL cholesterol, which is likely related to her reported diet high in fatty foods and cheese, but her high HDL is reassuring. I advised her to reduce her intake of these foods. Her vitamin D level was high at 82, so I recommended she decrease her supplementation. I agreed to her request to send prescriptions to [facility] for a 90-day supply. We scheduled a follow-up visit in six months. Patient Instructions - Most of your lab results were normal, including your blood counts, kidney and liver function, and blood sugar. - Your LDL ( bad ) cholesterol is a little high. - Please try to cut down on fatty foods, particularly cheese, to help lower this number. - Your vitamin D level is high at 82. - Please cut down on your vitamin D supplement. - Your prescriptions will be sent to [facility] as you requested. - Please schedule a follow-up appointment in about six months. - If you need anything before then, please contact the office. Medical Decision Making The patient is a 44-year-old female who presented for a review of her recent lab results. Her laboratory studies were largely unremarkable, with normal CBC, CMP, HbA1c, and thyroid function. The lipid panel revealed a slightly elevated LDL, which, given the patient's self-reported diet high in cheese, is likely diet-induced. Her HDL is favorably high at 60, which is cardioprotective. The primary intervention is dietary counseling at this time. Her vitamin D level of 82 indicates over-supplementation, and the patient was advised to decrease her intake. Infectious disease screenings were negative. The overall plan involves lifestyle and supplement modification with a follow-up in six months to monitor. Total Time Statement 20 min Total time spent caring for the patient today includes pre-visit chart review, documentation, review of laboratory and diagnostic imaging results, medication reconciliation, medically necessary evaluation, counseling on diagnoses, care coordination, ordering appropriate tests and medications, review of tests performed by other providers, reporting test results to the patient, and communication with other healthcare providers.
[2025-07-19 10:52] VITALS: BP 102/53; PULSE 83; RESP 16; TEMP 36.6; O2SAT 96; BMI 24.6
--- OUTSIDE RECORDS SUMMARY | 2025-07-19 22:17 | XMS_ITS | Clinical Summary ---
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 She was [...] age to complete this topic Pneumococcal Vaccine: At-Ris k and Pediatric Patients (0 to 49 Years) Aged Out No longer eligible b ased on patient's age to complete this topic Insurance MEDICAID COVID 19 Member Subscriber Plan / Payer (Ef fective 2021-Present) Name:Vivien Dockery Relation to Subscriber:Self Name:Vivien Dockery Payer ID:[id number] Group ID:Not on file Type:Medicaid Address: [place] [id number] MEDICAID [id number]
== END 2025-07-19 11:05 | disposition home or self-care (01) ==
LOC: HO.HMCFMS 10:48
PROVIDERS: Visit Provider Student in an Organized Health Care Education/Training Program
DX: E78.5 Hyperlipidemia, unspecified (principal); E67.3 Hypervitaminosis D; E89.40 Asymptomatic postprocedural ovarian failure; F41.9 Anxiety disorder, unspecified; F32.A Depression, unspecified

== ENCOUNTER → 2025-07-19 10:47 | Outpatient (BNVA) | payer OTHER, SELFPAY | PROVIDERS: Visit Provider Student in an Organized Health Care Education/Training Program | DX: E78.5 Hyperlipidemia, unspecified (principal); E67.3 Hypervitaminosis D; E89.40 Asymptomatic postprocedural ovarian failure; F41.9 Anxiety disorder, unspecified; F32.A Depression, unspecified | CPT/HCPCS: 99212 ==